=== PATIENT | female | born 1975 | race Caucasian/White ===

== ENCOUNTER 2017-03-18 00:57 | Emergency (ER) | payer OTHER ==
[2017-03-18 01:04] VITALS: BP 156/83; PULSE 70; TEMP 98.1; BMI 34.7
[2017-03-18] MEDS ORDERED: ACETAMINOPHEN 500 MG TABLET (FP) PO ONE (01:24)
--- NOTE | 2017-03-18 01:24 | PDOC ---
History of Present Illness - General Chief Complaint: Pain, Acute Stated Complaint: FELL BACKWARDS HIT HEAD ON FLOOR Time Seen by Provider: 03/18/17 01:22 - History of Present Illness Initial Comments: 03/18/17 01:52 was standing on chair to swat fly fell backwards felt stunned but no loc c/o pounding headache no n/v no sz activity no meds recently post- breast feeding fhx: non-contrib ros: reviewed and otherwise negative Physical exam: GENERAL: [The patient is awake, alert, and fully oriented, and in no apparent distress.] HEAD: [Normal with no signs of trauma. no kamryn tenderness] EYES: [Pupils equal, round and reactive to light, extraocular movements intact, sclera anicteric, conjunctiva are normal.] ENT: [TMs normal, nares patent, oropharynx clear without exudates. Moist mucous membranes.] NECK: [Normal range of motion, supple without lymphadenopathy, JVD, or masses.] LUNGS: [Breath sounds equal, clear to auscultation bilaterally. No wheezes, and no crackles.] HEART: [Regular rate and rhythm, normal S1 and S2 without murmur, rub or gallop.] ABDOMEN: [Soft, nontender, normoactive bowel sounds. No guarding, no rebound. No masses appreciated.] EXTREMITIES: [Normal range of motion, no edema. No clubbing or cyanosis. No cords, erythema, or tenderness.] NEUROLOGICAL: [Cranial nerves II through XII grossly intact. Normal speech, normal gait.] PSYCH: [Normal mood, normal affect.] SKIN: [Warm, Dry, normal turgor, no rashes or lesions noted.] a/p minor head trauma concussion low risk by english criteria analgesia Past History - Past Medical History Allergies/Adverse Reactions: Allergies Allergy/AdvReac Type Severity Reaction Status Date / Time No Known Allergies Allergy Verified 03/18/17 00:58 Home Medications: Ambulatory Orders Thyroid [[place] Thyroid] 60 mg PO DAILY 03/18/17 Thyroid Disease: Yes - Psycho/Social/Smoking Cessation Hx Anxiety: No Suicidal Ideation: No Smoking History: Never smoked Have you smoked in the past 12 months: No Information on smoking cessation initiated: No Hx Alcohol Use: No Drug/Substance Use Hx: No Substance Use Type: None *Physical Exam - Vital Signs Last Vital Signs Temp Pulse Resp BP Pulse Ox 98.1 F 70 18 156/83 97 03/18/17 01:00 03/18/17 01:00 03/18/17 01:00 03/18/17 01:00 03/18/17 01:00 *DC/Admit/Observation/Transfer Diagnosis at time of Disposition: Closed head injury Qualifiers: Encounter type: initial encounter Qualified Code(s): S09.90XA - Unspecified injury of head, initial encounter - Discharge Dispostion Disposition: HOME Condition at time of disposition: Stable - Referrals Referrals: Tigre Kaur MD [Primary Care Provider] - - Patient Instructions Printed Discharge Instructions: DI for Closed Head Injury
[2017-03-18] MEDS ORDERED: ACETAMINOPHEN 325 MG TABLET (FP) ONE (01:25)
== END 2017-03-18 01:27 | disposition home or self-care (01) ==
LOC: FER 00:57
DX: S09.90XA Unspecified injury of head, initial encounter (principal); E07.9 Disorder of thyroid, unspecified; W17.89XA Other fall from one level to another, initial encounter; Y93.89 Activity, other specified; Y92.9 Unspecified place or not applicable
CPT/HCPCS: 99281-25

== ENCOUNTER 2024-05-19 23:07 | Emergency (ER) | payer OTHER ==
[2024-05-19 23:16] VITALS: BP 144/92; PULSE 95; RESP 20; TEMP 99.3; BMI 28.3
[2024-05-20] MEDS ORDERED: ACETAMINOPHEN 325 MG TABLET (FP) ONE (00:12)
[2024-05-20] MEDS: ACETAMINOPHEN 500 MG TABLET (FP) PO ONE (00:16)
== END 2024-05-20 00:36 | disposition home or self-care (01) ==
LOC: JER 23:07
DX: M79.602 Pain in left arm (principal); M25.512 Pain in left shoulder
CPT/HCPCS: 99283-25